=== PATIENT | female | born 1950 | race Caucasian/White ===

== ENCOUNTER → 2018-09-14 10:56 | Outpatient (CLI) | payer MEDICARE, MEDICAID, SELFPAY ==
--- NOTE | 2018-09-14 11:19 | MRI_ITS ---
STUDY: MRI ABDOMEN WITH AND WITHOUT CONTRAST (MRI ENTEROGRAPHY) REASON FOR EXAM: Female, 68 years old. Crohn's disease with fistula. Diagnosis Crohn's 1978, 1999 portion of large and sm bowel removed 5 fistulas at time with colostomy, colostomy revised 2000, patient still has 1 fistula currently as she will pass gas thru vagina TECHNIQUE: Multisequence multiplanar MRI of the abdomen and pelvis was performed without and with IV contrast, MRI enterography technique, prone positioning, Gadavist, 8.0 mL. 1350 mL Volumen oral contrast. 1 mg IV glucagon. COMPARISON: None. FINDINGS: Osseous structures: Normal. Body wall soft tissues: Normal. Lung bases: Normal. Hepatobiliary: Normal. Spleen: Normal. Pancreas: Normal. Stomach: Normal. Retroperitoneum: No mass or lymphadenopathy. Urogenital: Normal features of the kidneys, collecting systems, ureters and urinary bladder. Uterus is absent. Ovaries are not visible and appear to be absent. There is no apparent fistulous communication with the vagina. Vasculature: Normal. Small bowel: The small bowel is appropriately distended with orally administered contrast. There is no apparent thickening of the small bowel wall from the duodenum through the mid ileum. No acute inflammatory features. There is appropriate enhancement of the wall the small bowel in the segments. There is no evidence of any small bowel/mesenteric fistula. There is abnormal thickening and enhancement of the wall of the distal ileum, in particular of the terminal ileum over a segment measuring approximately 5.5 cm in length. There is apparent slight scarring in the adjacent mesenteric fat which may reflect sequela from prior fistula. One of these slender curvilinear scars extends downward from the margin of the terminal ileum into the pelvis, toward the apex of the vagina. There is no apparent patent/fluid-filled/inflamed fistula tract. It is unclear if there might be an ileocolic anastomosis. The expected normal morphology of the ileocecal valve is not visible at the ileal cecal junction of the right lower quadrant. There may have been a partial resection of distal ileum and cecum. Correlate surgical history. Large bowel: The appendix is not visible and may be surgically absent. There is no apparent wall thickening or abnormal enhancement of the large bowel or rectum. There is no apparent inflammation of the anus. There are no apparent inflammatory features in the fat surrounding the large bowel and there is no evidence of active large bowel fistula. MRI/MRI Abd WITH and W/O Contrast IMPRESSION: Circumferential thickening of the wall the terminal ileum over a segment measuring about 5.5 cm in length, with prominent enhancement. Consistent with active inflammation. Projecting from the margin of the distal ileum, there is a scarlike serpiginous thread of soft tissue extending downward towards the apex of the vagina. This does not appear to be an actively inflamed or patent fistula tract. There is no defined evidence of ileo-vaginal or rectovaginal fistula. Transient expression of gas from the vagina may merely reflect normal muscular activity. Correlate clinically for any evidence of malodorous/feculent vaginal discharge which may present as more convincing evidence of enterovaginal fistula. There is no apparent inflammation of the large bowel. Electronically Signed: Migel Portillo MD at 18:32 EST Tel , Service support ,
[2018-09-14 12:06] LABS: CREATININE FINGERSTICK 1.1 mg/dL (0.55-1.02)
[2018-09-14 13:01] VITALS: BP 136/83; PULSE 70; RESP 14; O2SAT 98; BMI 25.7
[2018-09-14] MEDS: Glucagon 1 MG/ML Syringe IV (13:50)
[2018-09-14 14:10] VITALS: BP 129/82; PULSE 82; RESP 16; O2SAT 98
== END ==
PROVIDERS: Family Provider Family Medicine; PCP Family Medicine; Referring Provider Internal Medicine; Visit Provider Internal Medicine
DX: K50.013 Crohn's disease of small intestine with fistula (principal)
CPT/HCPCS: 74183; A9585; A4216; J1610

== ENCOUNTER → 2024-05-17 | Outpatient (CLI) | payer MEDICARE, MEDICAID, SELFPAY ==
[2024-05-17 12:03] LABS: Absolute Lymphocyte Count 2.29 X10^3/uL (0.83-4.51); Absolute Neutrophil Count 6.2 X10^3/uL (2.0-7.7); Basophil# 0.05 X10^3/uL; Basophil% 0.5 % (0-1); Eosinophil# 0.34 X10^3/uL; Eosinophils% 3.6 % (0-5); Hematocrit 40.8 % (37-47); Hemoglobin 12.4 g/dL (12.0-15.0); Lymphocyte # 2.29 X10^3/ul (0.83-4.51); Lymphocyte % 24.3 % (19-41); Mean Corp Hgb Conc 30.4 g/dL (32-36); Mean Corpuscular Hgb 27.3 pg (27.0-32.0); Mean Corpuscular Volume 89.7 fL (81-99); Mean Platelet Vol. 9.6 fl (6.2-12.0); Monocyte# 0.48 X10^3/uL; Monocyte% 5.1 % (0-10); NRBC Flagged by Analyzer 0 % (0-5); Neutrophil # 6.23 X10^3/uL (2.7-7.7); Neutrophil % 66.3 % (47-70); Platelet Count 218 K/mm3 (150-450); RBC Distribution Width CV 14.8 % (11.6-14.6); RBC Distribution Width SD 48.9 fl (35.1-43.9); Red Blood Count 4.55 M/mm3 (4.2-5.4); White Blood Count 9.4 K/mm3 (4.4-11.0)
[2024-05-21 11:07] LABS: Alternaria tenuis <0.10 kU/L (Class 0); Ash, White <0.10 kU/L (Class 0); Aspergillus fumigatus 0.64 kU/L (Class II); Bermuda Grass <0.10 kU/L (Class 0); Birch <0.10 kU/L (Class 0); Black Walnut <0.10 kU/L (Class 0); Cat Hair / Dander,Stand 0.41 kU/L (Class I); Cedar, Mountain <0.10 kU/L (Class 0); Cladosporium herbarum <0.10 kU/L (Class 0); Cockroach, American <0.10 kU/L (Class 0); Cottonwood <0.10 kU/L (Class 0); D farinae Mite <0.10 kU/L (Class 0); D pteronyssinus <0.10 kU/L (Class 0); Dog Epithelia <0.10 kU/L (Class 0); Elm, American White <0.10 kU/L (Class 0); Immunoglobulin E 25 IU/mL (6-495); Maple/Box Elder <0.10 kU/L (Class 0); Mouse Urine <0.10 kU/L (Class 0); Mulberry, White <0.10 kU/L (Class 0); Oak, White <0.10 kU/L (Class 0); Pecan <0.10 kU/L (Class 0); Penicillium Notatum 0.17 kU/L (Class 0/I); Pigweed, Rough <0.10 kU/L (Class 0); Ragweed, Short/Common <0.10 kU/L (Class 0); Russian Thistle <0.10 kU/L (Class 0); Sheep Sorrel <0.10 kU/L (Class 0); Sycamore, American <0.10 kU/L (Class 0); Timothy Grass <0.10 kU/L (Class 0)
[2024-05-21 16:07] LABS: Aspirgillus flavus Negative (Neg:<1:1); Aspirgillus fumigatus Negative (Neg:<1:1); Aspirgillus niger Negative (Neg:<1:1); Immunoglobulin E 27 IU/mL (6-495)
== END | disposition home or self-care (01) ==
LOC: LAB 11:35
PROVIDERS: PCP Family Medicine; Referring Provider Internal Medicine Critical Care Medicine; Visit Provider Internal Medicine Critical Care Medicine
DX: R91.1 Solitary pulmonary nodule (principal); F17.211 Nicotine dependence, cigarettes, in remission; T78.40XA Allergy, unspecified, initial encounter
CPT/HCPCS: 36415; 82785; 85025; 86003; 86606

== ENCOUNTER → 2024-05-18 | Outpatient (CLI) | payer MEDICARE, MEDICAID, SELFPAY | END | disposition home or self-care (01) | LOC: PSN 09:11 | PROVIDERS: PCP Family Medicine; Referring Provider Internal Medicine Critical Care Medicine; Visit Provider Internal Medicine Critical Care Medicine | DX: R91.1 Solitary pulmonary nodule (principal); F17.211 Nicotine dependence, cigarettes, in remission | CPT/HCPCS: 94060; 94726; 94729 ==

== ENCOUNTER → 2024-05-23 | Outpatient (CLI) | payer MEDICARE, MEDICAID, SELFPAY ==
[2024-05-23 12:09] VITALS: PULSE 86; PULSE 87; PULSE 90; PULSE 92; PULSE 93; PULSE 94; PULSE 95; O2SAT 96; O2SAT 97; O2SAT 98
--- NOTE | 2024-06-07 17:29 | PCM.PSN.6M ---
PSN 6 Minute Walk Test 6 Minute Walk Test 6 Minute Walk Test: 6 Minute Walk Test PSN:6-Minute Walk Test Start: 05/23/24 12:09 Freq: Status: Active Protocol: RESP.6MINW Document 05/23/24 12:09 [facility] (Rec: 05/23/24 12:12 [facility] [id number]) 6 Minute Walk Test Date Performed 05/23/24 Time Performed 11:15 Height 5 ft 5 in Weight: 66.224 kg Weight in Pounds 146.[address]: Varun Mccrary Assistive device used: None Pre-test Oxygen Delivery Method Room Air Pulse Ox (%) 98 Pulse Rate (60-100 beats/min) 90 Dyspnea Karen Scale (0-10) 0 1st minute Oxygen Delivery Method Room Air Pulse Ox (%) 96 Pulse Rate (60-100 beats/min) 86 Dyspnea Karen Scale (0-10) 0 Number of Rests Taken 0 2nd minute Oxygen Delivery Method Room Air Pulse Ox (%) 96 Pulse Rate (60-100 beats/min) 86 Dyspnea Karen Scale (0-10) 1 Number of Rests Taken 0 3rd minute Oxygen Delivery Method Room Air Pulse Ox (%) 97 Pulse Rate (60-100 beats/min) 92 Dyspnea Karen Scale (0-10) 1 Number of Rests Taken 1 4th minute Oxygen Delivery Method Room Air Pulse Ox (%) 98 Pulse Rate (60-100 beats/min) 93 Dyspnea Karen Scale (0-10) 1 Number of Rests Taken 0 5th minute Oxygen Delivery Method Room Air Pulse Ox (%) 98 Pulse Rate (60-100 beats/min) 94 Dyspnea Karen Scale (0-10) 1 Number of Rests Taken 0 6th minute Oxygen Delivery Method Room Air Pulse Ox (%) 98 Pulse Rate (60-100 beats/min) 95 Dyspnea Karen Scale (0-10) 2 Number of Rests Taken 0 Post-test Oxygen Delivery Method Room Air Pulse Ox (%) 98 Pulse Rate (60-100 beats/min) 87 Dyspnea Karen Scale (0-10) 0 Full Laps Walked 13 Partial Lap, Number of Tiles Walked 6 Total Distance Walked (ft) 773 Interpretation Interpretation: The patient was able to ambulate 773 feet over the course of 6 minutes on room air with no assistive devices and 1 break. The patient was noted to have a saturation of 98% at rest and a heart rate of 90 bpm. Patient's peak heart rate was 95 bpm and there was no significant desaturation with ambulation. These findings are consistent with a normal walking oximetry. Recommendations Recommendations: No supplemental oxygen is indicated at this time.
--- NOTE | 2024-06-09 15:31 | WT_ITS ---
PSN 6 Minute Walk Test 6 Minute Walk Test 6 Minute Walk Test: 6 Minute Walk Test PSN:6-Minute Walk Test Start: 05/23/24 12:09 Freq: Status: Active Protocol: RESP.6MINW Document 05/23/24 12:09 REPLACED BY [facility] (Rec: 05/23/24 12:12 REPLACED BY [facility] [id number]) 6 Minute Walk Test Date Performed 05/23/24 Time Performed 11:15 Height 5 ft 5 in Weight: 66.224 kg Weight in Pounds 146.[address]: Varun Mccrary Assistive device used: None Pre-test Oxygen Delivery Method Room Air Pulse Ox (%) 98 Pulse Rate (60-100 beats/min) 90 Dyspnea Karen Scale (0-10) 0 1st minute Oxygen Delivery Method Room Air Pulse Ox (%) 96 Pulse Rate (60-100 beats/min) 86 Dyspnea Karen Scale (0-10) 0 Number of Rests Taken 0 2nd minute Oxygen Delivery Method Room Air Pulse Ox (%) 96 Pulse Rate (60-100 beats/min) 86 Dyspnea Karen Scale (0-10) 1 Number of Rests Taken 0 3rd minute Oxygen Delivery Method Room Air Pulse Ox (%) 97 Pulse Rate (60-100 beats/min) 92 Dyspnea Karen Scale (0-10) 1 Number of Rests Taken 1 4th minute Oxygen Delivery Method Room Air Pulse Ox (%) 98 Pulse Rate (60-100 beats/min) 93 Dyspnea Karen Scale (0-10) 1 Number of Rests Taken 0 5th minute Oxygen Delivery Method Room Air Pulse Ox (%) 98 Pulse Rate (60-100 beats/min) 94 Dyspnea Karen Scale (0-10) 1 Number of Rests Taken 0 6th minute Oxygen Delivery Method Room Air Pulse Ox (%) 98 Pulse Rate (60-100 beats/min) 95 Dyspnea Karen Scale (0-10) 2 Number of Rests Taken 0 Post-test Oxygen Delivery Method Room Air Pulse Ox (%) 98 Pulse Rate (60-100 beats/min) 87 Dyspnea Karen Scale (0-10) 0 Full Laps Walked 13 Partial Lap, Number of Tiles Walked 6 Total Distance Walked (ft) 773 Interpretation Interpretation: The patient was able to ambulate 773 feet over the course of 6 minutes on room air with no assistive devices and 1 break. The patient was noted to have a saturation of 98% at rest and a heart rate of 90 bpm. Patient's peak heart rate was 95 bpm and there was no significant desaturation with ambulation. These findings are consistent with a normal walking oximetry. Recommendations Recommendations: No supplemental oxygen is indicated at this time.
== END | disposition home or self-care (01) ==
LOC: PSN 10:52
PROVIDERS: PCP Family Medicine; Referring Provider Internal Medicine Critical Care Medicine; Visit Provider Internal Medicine Critical Care Medicine
DX: R91.1 Solitary pulmonary nodule (principal); F17.211 Nicotine dependence, cigarettes, in remission
CPT/HCPCS: 94618

== ENCOUNTER → 2025-06-27 | Outpatient (CLI) | payer MEDICARE, SELFPAY | END | disposition home or self-care (01) | PROVIDERS: PCP Internal Medicine; Referring Provider Nurse Practitioner Acute Care; Visit Provider Nurse Practitioner Acute Care | DX: J45.50 Severe persistent asthma, uncomplicated (principal) | CPT/HCPCS: 87070; 87077; 87205 ==